=== PATIENT | male | born 2000 | race Caucasian/White ===

== ENCOUNTER 2019-10-12 12:24 | Emergency (ER) | payer OTHER ==
[~2019-10-12] VITALS: Ht 177.8 cm; Wt 81.6 kg
[2019-10-12] MEDS ORDERED: AUGMENTIN XR 11 EACH PO (12:31)
[2019-10-12] MEDS ORDERED: [UNRECOGNIZED DRUG - OTHER] (12:32)
== END 2019-10-12 15:41 | disposition home or self-care (01) ==
LOC: ER 12:24
DX: L05.01 Pilonidal cyst with abscess (principal)

== ENCOUNTER → 2020-01-29 | Outpatient (CLI) | payer OTHER ==
[~2020-01-29] MED LIST: AUGMENTIN XR 11 EACH PO; [UNRECOGNIZED DRUG - OTHER]
== END | disposition home or self-care (01) ==
LOC: MRI 09:00
PROVIDERS: ATTEND Radiology Diagnostic Radiology
DX: M25.512 Pain in left shoulder (principal); M25.561 Pain in right knee
CPT/HCPCS: 73221; 73721

== ENCOUNTER 2023-05-23 09:05 | Outpatient (CLI) | payer OTHER | END 2023-05-23 09:20 | disposition home or self-care (01) | LOC: TOM 09:05 | PROVIDERS: ATTEND Radiology Diagnostic Radiology | DX: R10.84 Generalized abdominal pain (principal) ==

== ENCOUNTER → 2024-07-23 | Outpatient (CLI) | payer OTHER | END | disposition home or self-care (01) | LOC: MRI 06:55 | PROVIDERS: ATTEND Radiology Diagnostic Radiology | DX: M54.50 Low back pain, unspecified (principal) ==

== ENCOUNTER 2024-07-30 08:21 | Outpatient (CLI) | payer OTHER | END 2024-07-30 09:00 | disposition home or self-care (01) | LOC: MRI 08:21 | PROVIDERS: ATTEND Radiology Diagnostic Radiology | DX: M54.50 Low back pain, unspecified (principal); M54.16 Radiculopathy, lumbar region | CPT/HCPCS: 72148 ==